=== PATIENT | male | born 1985 ===

== ENCOUNTER 2022-07-06 18:07 | Emergency (ER) | payer OTHER, MEDICAID, SELFPAY ==
[2022-07-06] VITALS (38 sets, daily range): BP systolic 123–152; BP diastolic 60–92; PULSE 67–98; RESP 7–27; TEMP 35.5; O2SAT 89–100; BMI 39.1
[2022-07-06] MEDS: HYDROMORPHONE 1 MG INJ IV (18:13)
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
[2022-07-06] MEDS: SODIUM CHLORIDE 0.9% 1,000 ML 1000 ML IV (18:20)
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
[2022-07-06 18:36] LABS: Add Manual Diff / Slide Review NO; Basophils Absolute Auto 100 /uL (0-100); Basophils Percent Auto 1.5 % (0-2); Eosinophils Absolute Auto 100 /uL (0-450); Eosinophils Percent Auto 0.9 % (2-4); Hematocrit 41.4 % (41-53); Hemoglobin 14.2 g/dL (13.5-17.5); Lymphocytes Absolute Auto 2100 /uL (1100-4500); Lymphocytes Percent Auto 22.9 % (25-40); Mean Corpuscular HGB Conc 34.3 % (30-36); Mean Corpuscular Volume 81.8 fL (80-100); Monocytes Absolute Auto 500 /uL (0-900); Monocytes Percent Auto 5.2 % (3-14); Neutrophils Absolute Auto 6500 /uL (1500-7000); Neutrophils Percent Auto 69.5 % (50-75); Platelet Count 407 X10^3/uL (150-400); Red Blood Cell Count 5.06 X10^6/uL (4.5-5.9); Red Cell Distribution Width 13.8 % (11.6-14.8); White Blood Cell Count 9.4 X10^3/uL (4.5-11.0)
[2022-07-06 18:45] LABS: Alanine Aminotransferase 64 IU/L (<50); Albumin 4.3 g/dL (3.5-5.0); Albumin Globulin Ratio 1.3 (1.0-2.8); Alkaline Phosphatase 79 U/L (38-126); Aspartate Aminotransferase 93 IU/L (17-59); BUN Creatinine Ratio 13.2 (6-22); Bilirubin Total 0.7 mg/dL (0.2-1.3); Blood Urea Nitrogen 9 mg/dL (9-20); Calcium 9.2 mg/dL (8.4-10.2); Carbon Dioxide 27 mmol/L (22-32); Chloride 104 mmol/L (98-107); Creatine Kinase 91 U/L (55-170); Estimated Glomerular Filt Rate > 60 mL/min (>60); Ethanol (ETOH) < 10 mg/dL; Globulin 3.3 g/dL (1.7-4.1); Glucose 113 mg/dL (70-100); HEMOLYSIS 18 (0-50); Lipase 216 U/L (23-300); Potassium 3.4 mmol/L (3.4-5.1); Sodium 140 mmol/L (137-145); Total Protein 7.6 g/dL (6.3-8.2)
[2022-07-06 18:56] LABS: Troponin I < 0.012 ng/mL (0.01-0.034)
--- NOTE | 2022-07-06 19:01 | PC.NURSE ---
Pt has 20G PIV intact. 16G PIV infiltrated en route. Unable to obtain secondary access on pt by RN x 2 and attempted with US machine. community relations officer at bedside for legal draw. Phlebotomy unable to obtain blood. Legal blood draw labs obtained by this RN from 20G PIV.
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
--- NOTE | 2022-07-06 19:19 | PC.NURSE ---
Pelvic Binder removed by MD. Patient repositioned on side with assistance of orthotics technician/PLASTIC CUTTER to use urinal. Patient continues to report pain. MD aware.
== END 2022-07-06 21:19 | disposition home or self-care (01) ==
PROVIDERS: Emergency Provider Emergency Medicine
DX: M54.50 Low back pain, unspecified (principal); M54.6 Pain in thoracic spine; S09.90XA Unspecified injury of head, initial encounter; R07.89 Other chest pain; V89.2XXA Person injured in unspecified motor-vehicle accident, traffic, initial encounter
CPT/HCPCS: 36415; 70450; 71045; 71260; 72125; 72170; 74177; 80053; 80320; 82550; 83690; 84484; 85025; 96361; 96374; 99285; J1170; Q9967